=== PATIENT | female | born 1965 | race Caucasian/White ===

== ENCOUNTER 2016-05-27 19:00 | Emergency (ER) | payer OTHER ==
[~2016-05-27] VITALS: Ht 167.6 cm; Wt 72.7 kg
[~2016-05-27 19:00] MED LIST: AMPH30CA5 PO; CETI5TAB28 PO; DOCU-41 PO; DOXY100C2 PO; FLUO40CA PO; FLUT16SP NS; IMI100 PO; MULT-1065 PO; NAPR220C16 PO; ZOLP10TA5 PO
[2016-05-27 19:11] VITALS: BP 134/80; PULSE 91; RESP 16; O2SAT 99
[2016-05-27 21:10] LABS: BASOPHILS % (AUTO) 0.1 % (0-3); EOSINOPHILS % (AUTO) 0.3 % (0-5); MONOCYTES % (AUTO) 7.5 % (4-12); Mean Corpuscular Hemoglobin 29.8 pg (27.0-35.0); Mean Corpuscular Volume 90.1 fL (81-100); NEUTROPHILS % (AUTO) 83.4 % (40-74); Platelet Count 239 bil/L (150-400)
--- NOTE | 2016-05-27 21:29 | ED.REPORT ---
HPI-Rash / Abscess Date of Service May 27, 2016 ED Provider: Dr. Bear Pt is a 50 y/o healthy female presenting to the ED c/o right posterior scalp abscess onset 6 days ago. She was having her hair done 6 days ago and afterward she believed she may have had some micro abrasions. She developed a bump which has grown throughout the week. Pt c/o associated fever, chills, worsening tenderness. She has no history of abscesses or MRSA infections. Pt denies N/V/D. Nursing Notes Stated Complaint: SCALP ABSCESS Chief Complaint: Skin Rash/Abscess Nursing Notes Reviewed: Yes Scheduled Cetirizine (Cetirizine) 5 Mg Tablet 10 MG PO HS Dextroamphetamine/Amphetamine ER (Adderall XR) 30 Mg Capsule 30 MG PO DAILY Doxycycline Hyclate (Doxycycline Hyclate) 100 Mg Capsule 100 MG PO BID Fluoxetine (Fluoxetine) 40 Mg Capsule 40 MG PO DAILY Fluticasone Propionate (Fluticasone Propionate Nasal) 16 Gm [place].susp 1 SPRAY NS DAILY Multivits-Min/Iron/FA/Lutein (Centrum Silver Women Tablet) 8 Mg Iron-400 Mcg- 300 Mcg Tablet 1 EACH PO DAILY Scheduled PRN Docusate Sodium (Colace) 100 Mg Capsule 100-200 MG PO DAILY PRN PRN For Constipation Naproxen Sodium (Naproxen Sodium) 220 Mg Capsule 220 MG PO BID PRN PRN For Pain Sumatriptan (Imitrex) 100 Mg Tablet 100 MG PO PRN migraine Zolpidem (Zolpidem) 10 Mg Tablet 10 MG PO HS PRN PRN For Insomnia General Time Seen by MD: 21:28 Chief Complaint Abscess Hx Obtained From: Patient Arrived By: Walk-in Onset Occurred: 6 days ago Symptom Duration: Since onset Location: : Head/face Quality: Painful Severity: Current: Mild Severity: Maximum: Mild Recent Healthcare: No recent doctor visit, No recent hospitalization Similar Sx Previous: No Past Medical History Past Medical History Hx postural hypotension Hx of asthma Migraines Depression Past Surgical History 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 Physical Exam Initial Vital Signs Vital Signs (First) Date Time Temp Pulse Resp B/P Pulse Ox O2 Delivery O2 Flow Rate FiO2 05/27/16 19:11 38.5 91 16 134/80 99 Room Air Initial VS: Reviewed, Vital signs abnormal ENT: Mucous membranes moist, Conjunctiva normal, No scleral icterus Neck: Supple, Non-tender, Full range of motion Respiratory: Breath sounds normal, Clear to auscultation, No respiratory distress Cardiovascular: Regular rate & rhythm, Heart sounds normal, Intact distal pulses Abdomen / GI: Soft, Non-tender Extremities: Vascular intact, Neuro intact, No swelling, No tenderness Neurologic: Alert, Oriented, Nonfocal Psychiatric: Mood/affect normal, Behavior normal, Normal thought content General/Constitutional: Awake, Alert, No acute distress, Well appearing, Cooperative, Not toxic appearing Skin: Atraumatic, Warm, Dry, Intact Rash / Lesion Notes: Large indurated abscess over the right posterior skull with erythema streaking downwards. Tender to palpation Crusted over purulent drainage Interpretation & Diagnostics Lab Results Interpretation Result Diagram: 05/27/16205505/27/162055 Test 05/27/16 20:56 White Blood Count 15.5th/mm3 (3.8-10.1) Red Blood Count 4.63mil/mm3 (3.90-5.20) Hemoglobin 13.8g/dL (12.0-15.6) Hematocrit 41.7% (35.0-46.0) Mean Corpuscular Volume 90.1fL (81-100) Mean Corpuscular Hemoglobin 29.8pg (27.0-35.0) Mean Corpuscular Hemoglobin Concent 33.1% (32.0-37.0) Red Cell Distribution Width 13.8% (12.3-15.4) Platelet Count 239bil/L (150-400) Neutrophils (%) (Auto) 83.4% (40-74) Lymphocytes (%) (Auto) 8.5% (14-46) Monocytes (%) (Auto) 7.5% (4-12) Eosinophils (%) (Auto) 0.3% (0-5) Basophils (%) (Auto) 0.1% (0-3) Sodium Level 133mEq/L (134-144) Potassium Level 3.6mEq/L (3.5-5.2) Chloride Level 94mEq/L (97-108) Carbon Dioxide Level 25mmol/L (18-29) Blood Urea Nitrogen 8mg/dL (6-24) Creatinine 0.67mg/dL (0.57-1.00) Estimat Glomerular Filtration Rate 133mL/min (>59) Glucose Level 133mg/dL (60-99) Calcium Level 9.1mg/dL (8.5-10.1) Total Bilirubin 0.5mg/dL (0.0-1.2) Aspartate Amino Transf (AST/SGOT) 21U/L (0-50) Alanine Aminotransferase (ALT/SGPT) 13U/L (0-32) Alkaline Phosphatase 135U/L (25-150) Total Protein 7.2g/dL (6.4-8.4) Albumin 4.0g/dL (3.4-5.0) Procedures Incision & Drainage Abscess Time: 22:53 Procedure Performed by: ED physician Consent / Setup / Site Prep: Consent from patient, Time-out performed, Hand hygiene observed, Stand sterile technique Location of Abscess: Right occipital scalp Skin Preparation Agent: [place] Local Anesthesia: Lidocaine w epi 1% Incised Abscess with Scalpel: #11 Pus Drained: Medium, Purulent discharge Irrigation: Yes, Copious Post-Procedure / Complications: Packing placed, Culture obtained, Dressing applied, No complications, Condition improved, Tolerated procedure well, Patient stable Re-Eval/Medical Decision Re-Evaluation/Progress : Time of Eval: 23:12 Re-Evaluation/Progress Note: Pt rechecked. Informed pt of plan for treatment. Pt understands and agrees with plan for treatment. F/U instructions and RTER warnings given. All questions addressed. Counseled Regarding: Diagnosis, Lab results, Need for follow-up, When/why to return to ED Discharge & Departure Impression: Primary Impression: Scalp abscess Additional Impression: Cellulitis Disposition: Home Discharge Condition All VS Reviewed: Yes Condition: Stable Patient Instructions: Abscess (ED) Additional Instructions: Your scalp abscess was incised and drained today. Remove the packing on Friday Your labs today were normal other than your white blood cell count which was mildly elevated. Take the full course of antibiotics (trimethoprim/sulfamethoxazole) as directed. Use hot soaks multiple times throughout the day. Take 800 mg Ibuprofen every 8 hours as needed for fever or discomfort. Return to the emergency department if you develop a persistent high fever, spreading of the rash, vomiting, or for other new or worsening symptoms. Follow up with your primary care doctor at the end of the week for a recheck. Referrals: Natalee Pérez MD (PCP) Dylan Fountain MD (Family) Lisandro Attestation Portions of this note were transcribed by Jonathan Montana. I, Dr. Bear personally performed the history, physical exam and medical decision-making; I reviewed and confirmed the accuracy of the information in the transcribed note. Signed by Lisandro Rondon, 05/27/16 - [id number] copies to: Dylan Fountain MD; Natalee Pérez MD, Kirk H MD May 27, 2016 21:28 JONATHAN MONTANA May 27, 2016 22:34
[2016-05-27] MEDS ORDERED: Lidocaine 1%-Epi 1:100,000 20 mL Inj ONE (22:47)
[2016-05-27] MEDS ORDERED: Sodium Bicarb 1 mEq/mL 50 mL Inj ONE (22:47)
[2016-05-27] MEDS ORDERED: Trimethoprim-Sulfa 160 mg-800 mg Tablet PO ONE (23:15)
[2016-05-27] MEDS ORDERED: _HYDROcodone/APAP 5-325 mg Tablet PO PRN (23:15)
[2016-05-27] MEDS ORDERED: SULF1TAB7 PO (23:20)
[2016-05-27 23:55] VITALS: BP 129/67; PULSE 78; RESP 18; O2SAT 99
== END 2016-05-27 23:56 | disposition home or self-care (01) ==
LOC: SED 19:00
DX: L02.811 Cutaneous abscess of head [any part, except face] (principal); L03.811 Cellulitis of head [any part, except face]